=== PATIENT | male | born 1995 | race Caucasian/White ===

== ENCOUNTER 2018-08-01 08:06 | Emergency (ER) ==
[~2018-08-01] VITALS: Ht 170.2 cm; Wt 74.8 kg
[2018-08-01] MEDS ORDERED: CLONAZEPAM TAB 1MG (08:25)
[2018-08-01] MEDS ORDERED: AMPHET (08:25)
[2018-08-01] MEDS ORDERED: TRAZODONE 50 MG TABLET (08:25)
[2018-08-01] MEDS ORDERED: DEXTR (08:25)
[2018-08-01 08:27] VITALS: BP 132/78
[2018-08-01] MEDS ORDERED: NA PHOS,M-B/NA PHOS,DI-BA 1 EA ENEMA RC ONE ×2 (08:50→09:00)
[2018-08-01] MEDS ORDERED: MAGNESIUM CITRATE 296 ML BOTTLE ONE (08:56)
[2018-08-01] MEDS ORDERED: MAGNESIUM CITRATE 296 ML BOTTLE PO ONE (09:00)
== END 2018-08-01 09:30 | disposition home or self-care (01) ==
LOC: ER 08:15
DX: K59.00 Constipation, unspecified (principal); F40.9 Phobic anxiety disorder, unspecified; F17.200 Nicotine dependence, unspecified, uncomplicated
CPT/HCPCS: A4606; Z7610